=== PATIENT | male | born 1960 | race African-American/Black ===

== ENCOUNTER 2019-09-21 14:49 | Inpatient (IN) | payer OTHER ==
--- NOTE | 2019-09-21 15:09 | BHS.RME ---
Substance Use & Tx History - Substance Use History Alcohol Substance amount: 1/2 pint vodka Frequency of use: Daily Substance route: Oral Date of Last Use: 09/21/19 Heroin Substance amount: 8 bags Frequency of use: Daily Substance route: Inhalation (ex: sniffing or snorting) Date of Last Use: 09/21/19 Nicotine Substance amount: 3-4 ciggs Frequency of use: Daily Substance route: Smoking Date of Last Use: 09/21/19 Physical/Psych/Mental Status - Behavior General Behavior: Increased activity (restlessness, agitation) Eye Contact: Normal - Cooperativeness Cooperativeness: Cooperative - Thinking Thought Processes: Tight, Logical, Goal Directed - Physical Health Problems Is patient presently having any pain?: No Does patient presently have any injuries (include location): No Does patient currently have a fever: No Is patient : No COWS - Scale Resting Pulse: 1= [place] 81-100 Sweatin= Chills/Flushing Restless Observation: 3= Extraneous Movement Pupil Size: 1= Pupils >than Normal Bone or Joint Aches: 4=Acute Joint/Muscle Pain Runny Nose/ Eye Tearin= None GI Upset > 30mins: 0= None Tremor Observation: 1= Tremor [place], Not Seen Yawning Observation: 1= 1-2x During Session Anxiety or Irritability: 1=Feels Anxious/Irritable Goose Flesh Skin: 0=Smooth Skin COWS Score: 13 CIWA Nausea/Vomitin-No Nausea/No Vomiting Muscle Tremors: 3 Anxiety: 4-Mod. Anxious/Guarded Agitation: 4-Moderately Restless Paroxysmal Sweats: 1-Minimal Palms Moist Orientation: 0-Oriented Tacttile Disturbances: 0-None Auditory Disturbances: 0-None Visual Disturbances: 0-None Headache: 0-None Present CIWA-Ar Total Score: 12
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
[2019-09-21] MEDS ORDERED: NICOTINE POLACRILEX 2 MG GUM BUC PRN (17:00)
[2019-09-21] MEDS ORDERED: ACETAMINOPHEN 325 MG TABLET (FP) PO PRN ×2 (17:00)
[2019-09-21] MEDS ORDERED: BISMUTH SUBSALICYLATE 524 MG/30 ML UD PO PRN (17:00)
[2019-09-21] MEDS ORDERED: MAGNESIUM CITRATE 300 ML BOTTLE PO PRN (17:00)
[2019-09-21] MEDS ORDERED: MAGNESIUM HYDROX 2400MG/30ML ORAL SUSPENSION 30 ML CUP PO PRN (17:00)
[2019-09-21] MEDS ORDERED: ONDANSETRON *ODT* 4 MG TABLET SL PRN (17:00)
[2019-09-21] MEDS ORDERED: METHOCARBAMOL 500 MG TABLET PO PRN (17:00)
[2019-09-21] MEDS ORDERED: MAG HYDROX/AL HYDROX/SIMETH 30 ML UNIT-DOSE CUP PO PRN (17:00)
[2019-09-21] MEDS ORDERED: chlordiazePOXIDE HCL 25 MG CAPSULE PO PRN (17:00)
[2019-09-21] MEDS ORDERED: MENTHOL/PHENOL 1 EACH UD MM PRN (17:00)
[2019-09-21] MEDS ORDERED: IBUPROFEN 400 MG TABLET (FP) PO PRN (17:00)
[2019-09-21] MEDS ORDERED: ALBUTEROL SO4 HFA INHALER IH PRN (17:04)
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
[2019-09-21 17:28] VITALS: BMI 21.1
[2019-09-21] MEDS ORDERED: hydrOXYzine PAMOATE 25 MG CAPSULE (FP) PO SCH (18:00)
[2019-09-21] MEDS: NICOTINE 7 MG/24 HOURS TOPICAL PATCH TD SCH (18:35)
[2019-09-21] MEDS ORDERED: LISINOPRIL 20 MG TABLET (FP) PO ONE (19:08)
[2019-09-21] MEDS ORDERED: hydrOXYzine PAMOATE 25 MG CAPSULE (FP) PO PRN (19:52)
[2019-09-21] MEDS ORDERED: cloNIDine HCL 0.1 MG TABLET PO PRN (19:53)
[2019-09-21] MEDS ORDERED: diazePAM 5 MG TABLET PO PRN (19:54)
[2019-09-21] MEDS ORDERED: MELATONIN 5 MG TABLETS PO SCH (22:00)
[2019-09-21] MEDS ORDERED: METHADONE HCL 10 MG TABLET (FOR DETOX USE ONLY) PO ONE (22:00)
[2019-09-21] MEDS ORDERED: THIAMINE HCL 100 MG TABLET (FP) PO SCH (22:00)
[2019-09-21] MEDS: diazePAM 5 MG TABLET PO SCH (22:33)
[2019-09-21] MEDS ORDERED: chlordiazePOXIDE HCL 25 MG CAPSULE PO SCH (23:00)
[2019-09-22 06:19] VITALS: BP 151/87; PULSE 69; TEMP 98.4
[2019-09-22] MEDS: diazePAM 5 MG TABLET PO SCH (06:56)
--- NOTE | 2019-09-22 09:13 | EKG ---
Test Reason : Blood Pressure : / mmHG Vent. Rate : 075 BPM Atrial Rate : 075 BPM P-R Int : 150 ms QRS Dur : 092 ms QT Int : 356 ms P-R-T Axes : 000 141 142 degrees QTc Int : 397 ms SUSPECT ARM LEAD REVERSAL, INTERPRETATION ASSUMES NO REVERSAL NORMAL SINUS RHYTHM WITH SINUS ARRHYTHMIA LEFT POSTERIOR FASCICULAR BLOCK NONSPECIFIC ST AND T WAVE ABNORMALITY ABNORMAL ECG NO PREVIOUS ECGS AVAILABLE Confirmed by Caden Flores ([id number]) on 09/22/2019 9:13:05 AM Referred By: RANDA DEMPSEY Confirmed By:Caden Flores
[2019-09-22] MEDS: NICOTINE 7 MG/24 HOURS TOPICAL PATCH TD SCH (09:34)
[2019-09-22] MEDS ORDERED: CALCIUM 500MG/VIT-D 200 UNITS COMBO TABLET (FP) PO SCH (10:00)
[2019-09-22] MEDS ORDERED: PRENATAL VITAMINS W/ FOLIC ACID TABLET (FP) PO SCH (10:00)
[2019-09-22] MEDS ORDERED: METHADONE HCL 5 MG TABLET (FOR DETOX USE ONLY) PO ONE (10:00)
[2019-09-22] MEDS ORDERED: LISINOPRIL 20 MG TABLET (FP) PO SCH (10:00)
[2019-09-22 12:02] LABS: ALBUMIN 3.4 g/dl (3.4-5.0); BLOOD UREA NITROGEN 8.8 mg/dL (7-18); CALCIUM 9.7 mg/dL (8.5-10.1); POTASSIUM 3.2 mmol/L (3.5-5.1)
[2019-09-22 12:08] LABS: BILIRUBIN,TOTAL 0.6 mg/dL (0.2-1); CREATININE 0.7 mg/dL (0.55-1.3); TOT PROT 8.1 g/dl (6.4-8.2)
[2019-09-22 12:09] LABS: HEMATOCRIT 46.2 % (35.4-49); HEMOGLOBIN 15.4 GM/dL (11.7-16.9); MCH 30.8 pg (25.7-33.7); MCHC 33.2 g/dl (32.0-35.9); MEAN CELL VOLUME 92.8 fl (80-96); MEAN PLT VOLUME 8.8 fl (7.5-11.1); PLATELET COUNT 207 K/MM3 (134-434); RBC 4.98 M/mm3 (4.00-5.60); RDW 15.5 % (11.9-15.9); WHITE BLOOD COUNT 4.1 K/mm3 (4.0-10.0)
--- NOTE | 2019-09-22 12:20 | DS ---
[facility] Detox Discharge Summary Admission Date: 09/21/19 Discharge Date: 09/22/19 - History Present History: Alcohol Dependence, Opioid Dependence Additional Comments: Pt is a 59 y/o male admitted last evening for detox but declined to continue with treatment stating "I just wanna leave, Miss"! Pt was seen by his counselor, ms Shinradha McguireTato and referred to follow up with aftercare. Pt Further states he is going to [facility] program. Pertinent Past History: HTN - Physical Exam Results Vital Signs: Vital Signs Temperature 98.4 F 09/22/19 05:52 Pulse Rate 69 09/22/19 05:52 Respiratory Rate 18 09/22/19 05:52 Blood Pressure 151/87 09/22/19 05:52 O2 Sat by Pulse Oximetry (%) 96 09/22/19 05:52 alert o x 3 nad oob ambulating with steady gait. Pertinent Admission Physical Exam Findings: Laboratory Tests 09/22/19 09/22/19 08:00 08:00 WBC 4.1 RBC 4.98 Hgb 15.4 Hct 46.2 MCV 92.8 MCH 30.8 MCHC 33.2 RDW 15.5 Plt Count 207 MPV 8.8 Sodium 140 Potassium 3.2 L Chloride 104 Carbon Dioxide 30 Anion Gap 6 L BUN 8.8 Creatinine 0.7 Est GFR (CKD-EPI)AfAm 118.05 Est GFR (CKD-EPI)NonAf 101.85 Random Glucose 111 H Calcium 9.7 Total Bilirubin 0.6 AST 20 ALT 16 Alkaline Phosphatase 108 Total Protein 8.1 Albumin 3.4 covid-19 result pending K+ 3.2( Kdur sent to [place] [facility] for pt to brain picker after discharge). Pt to follow up with his primary care provider. Pt is very inpatient to leave program and does not want to be asked any further questions. - Treatment Hospital Course: Discharged Condition Good, Rehab Referral Accepted Patient has Accepted a Rehab Referral to: [facility], [place], [place]. - Medication Discharge Medications: Ambulatory Orders Acetaminophen [Pain Relief] 500 mg PO QID 09/21/19 Calcium Carbonate/Vitamin D3 [Calcium 500-Vit D3 200 Tablet] 1 tablet PO DAILY 09/21/19 Lisinopril 20 mg PO DAILY 09/21/19 Potassium Chloride [K-Dur -] 20 meq PO BID #10 tablet.er 09/22/19 - Diagnosis (1) Alcohol dependence with withdrawal, uncomplicated Current Visit: Yes Status: Acute (2) Heroin use disorder, moderate, on maintenance therapy Current Visit: Yes Status: Acute (3) Hypertension Current Visit: Yes Status: Chronic Qualifiers: Hypertension type: essential hypertension Qualified Code(s): I10 - Essential (primary) hypertension (4) Nicotine dependence Current Visit: Yes Status: Acute Qualifiers: Nicotine product type: cigarettes Substance use status: in withdrawal Qualified Code(s): F17.213 - Nicotine dependence, cigarettes, with withdrawal (5) Noncompliance by refusing service Current Visit: Yes Status: Acute - AMA Did Patient Leave Against Medical Advice: Yes
[2019-09-22] MEDS ORDERED: POTASSIUM CHLORIDE TABS 20 MEQ TABLET.ER (FP) PO SCH (18:00)
[2019-09-23] MEDS ORDERED: chlordiazePOXIDE HCL 25 MG CAPSULE PO SCH (05:00)
[2019-09-23] MEDS ORDERED: diazePAM 5 MG TABLET PO SCH (06:00)
[2019-09-23] MEDS ORDERED: METHADONE HCL 10 MG TABLET (FOR DETOX USE ONLY) PO ONE (10:00)
[2019-09-24] MEDS ORDERED: chlordiazePOXIDE HCL 10 MG CAPSULE PO PRN
[2019-09-24] MEDS ORDERED: chlordiazePOXIDE HCL 10 MG CAPSULE PO SCH (05:00)
[2019-09-24] MEDS ORDERED: diazePAM 5 MG TABLET PO ONE (06:00)
[2019-09-24] MEDS ORDERED: METHADONE HCL 5 MG TABLET (FOR DETOX USE ONLY) PO ONE (06:00)
[2019-09-25] MEDS ORDERED: chlordiazePOXIDE HCL 10 MG CAPSULE PO SCH (05:00)
[2019-09-26] MEDS ORDERED: chlordiazePOXIDE HCL 10 MG CAPSULE PO ONE (05:00)
== END 2019-09-22 12:00 | disposition left against medical advice (07) | DRG 770 ==
LOC: YASAS 14:49 → Y5N DETOX 17:32
PROVIDERS: ADMIT Allergy & Immunology; ATTEND Allergy & Immunology
PROC: HZ2ZZZZ Detoxification Services for Substance Abuse Treatment (ICD-10-PCS; principal; 2019-09-21)
DX: F10.230 Alcohol dependence with withdrawal, uncomplicated (principal); F11.20 Opioid dependence, uncomplicated; F17.213 Nicotine dependence, cigarettes, with withdrawal; I10 Essential (primary) hypertension; Z91.19 Patient's noncompliance with other medical treatment and regimen; Z59.0 Homelessness
CPT/HCPCS: 36415; 80053; 85027; 86780; 93005; 93010; U0003